=== PATIENT | female | born 1950 | race Caucasian/White ===

== ENCOUNTER 2020-12-20 03:12 | Emergency (ER) | payer MEDICARE | END 2020-12-20 05:56 | LOC: ER 03:54 | DX: R06.03 Acute respiratory distress (principal); R09.02 Hypoxemia; I12.9 Hypertensive chronic kidney disease with stage 1 through stage 4 chronic kidney disease, or unspecified chronic kidney disease; E11.22 Type 2 diabetes mellitus with diabetic chronic kidney disease; N18.30 Chronic kidney disease, stage 3 unspecified; Z85.9 Personal history of malignant neoplasm, unspecified; D64.9 Anemia, unspecified | CPT/HCPCS: 99284 ==